=== PATIENT | male | born 1970 | race Caucasian/White ===

== ENCOUNTER 2021-03-26 13:18 | Outpatient (REF) | payer OTHER, SELFPAY ==
--- NOTE | ~2021-03-26 | XR_ITS ---
EXAMINATION: XR CERVICAL SPINE CLINICAL INFORMATION: Neck pain COMPARISON: None TECHNIQUE: 3 views of the cervical spine were obtained. FINDINGS: Bone alignment is normal. No fracture or dislocation is seen. There is mild degenerative spondylosis at C2-C3 and C6-C7. Disc spaces are normal. Prevertebral soft tissues are normal. XR/XR cervical spine 3V IMPRESSION: Mild degenerative spondylosis at C2-C3 and C6-C7.
== END 2021-03-26 13:19 | disposition home or self-care (01) ==
LOC: HO.XRAY 13:18
PROVIDERS: Visit Provider Psychiatry & Neurology Neurology
DX: M54.2 Cervicalgia (principal)
CPT/HCPCS: 72040